=== PATIENT | female | born 1940 | race Caucasian/White ===

== ENCOUNTER 2019-04-16 07:44 | Outpatient (RCR) | payer MEDICARE, BC, SELFPAY | END 2019-04-16 23:59 | disposition home or self-care (01) | LOC: ANHAUDIO 07:44 | PROVIDERS: PCP Internal Medicine; Visit Provider Internal Medicine | DX: Z46.1 Encounter for fitting and adjustment of hearing aid (principal) | CPT/HCPCS: 99199 ==

== ENCOUNTER 2019-12-21 08:16 | Outpatient (RCR) | payer SELFPAY | END 2019-12-21 23:59 | disposition home or self-care (01) | LOC: ANHAUDIO 08:16 | PROVIDERS: PCP Internal Medicine; Visit Provider Internal Medicine | DX: Z46.1 Encounter for fitting and adjustment of hearing aid (principal) | CPT/HCPCS: 92593 ==

== ENCOUNTER 2025-03-06 09:36 | Outpatient (CLI) | payer MEDICARE, BC, SELFPAY ==
--- OUTSIDE RECORDS SUMMARY | 2025-03-06 10:12 | XMS_ITS | Clinical Summary ---
Author Organization [facility] Address [address] [place] [address] Phone Care Team Providers Care Pruner Name Role Phone Thee Archuleta MD Primary Care Provider [phone] Allergies Active Allergy Reactions Criticality Noted Date Comments Levofloxacin Other (See Comments) Low 08/14/2020 Reaction: joint, muscle aches., , Prochlorperazine Unknown 08/14/2020 Tetanus Vaccines And Toxoid Swelling Medium 02/07/2015 Reaction: swelling, , , Medications amLODIPine (NORVASC) 10 mg tablet Take 10 mg by mouth daily. Active meloxicam (MOBIC) 15 mg tablet Take 15 mg by mouth daily. Active hydrALAZINE (APRESOLINE) 50 mg tablet Take 50 mg by mouth 2 times daily. Active metoprolol succinate (TOPROL XL) 25 mg Extended Release 24 hour tablet Take 50 mg by mouth 2 times daily. Active omeprazole (PriLOSEC) 20 mg Capsule, Delayed Release(E.C.) Take 40 mg by mouth daily. Active gabapentin (NEURONTIN) 100 mg capsule Take 100 mg by mouth 3 times daily. Active hyoscyamine 0.375 mg Extended Release 12 hour tablet Take 0.375 mg by mouth every 12 hours as needed for Discomfort. Active chlorhexidine gluconate 0.12 % Mouthwash 15 mL by Mouth/Throat route 2 times daily. Active OTHER cyanocobalam inj 1000 mg Every month Active naloxone (NARCAN) 4 mg/spray Martha, Non-Aerosol EMERGENCY USE ONLY: Administer 1 spray in one nostril one time. May repeat in alternating nostrils every 2-3 min until responsive or EMS arrives. 2 Each 3 01/03/2020 5:00 PM CDT 0 Active azelastine (ASTEPRO) 0.15 % (205.5 mcg) nasal spray Administer 1 Martha in each nostril 1 time daily as needed. Active ciprofloxacin-d exAMETHasone (CIPRODEX) 0.3-0.1 % Drops, Suspension Administer 3 Drops in both ears 2 times daily as needed. Active blood sugar diagnostic Strip USE TO TEST BLOOD GLUCOSE EVERY DAY 9 Active calcium carbonate + vitamin D (CALTRATE+D) 600 mg(1,500mg) -400 unit Tablet Take 1 Tablet by mouth daily. Active cyanocobalamin (VITAMIN B-12) 1,000 mcg/mL Solution GIVE 1 ML INJECTION SQ ONCE A MONTH 0 Active cyclobenzaprine (FLEXERIL) 10 mg tablet Take 10 mg by mouth. Active lancets Test blood sugars daily 9 Active vitamin E 400 unit capsule Take 400 Units by mouth daily. Active quinapriL (ACCUPRIL) 20 mg tablet Take 20 mg by mouth daily. 0 Active DULoxetine (CYMBALTA) 60 mg Capsule, Delayed Release(E.C.) Take 60 mg by mouth daily. 2 Active pravastatin (PRAVACHOL) 10 mg tablet Take 10 mg by mouth daily at bedtime. 2 Active doxycycline hyclate (VIBRAMYCIN) 100 mg tablet Take 1 Tablet (100 mg) by mouth 2 times daily. 28 Tablet 2 Active tobramycin-dexA METHasone (TOBRADEX) 0.3-0.1 % suspension Use 3 drops in Left Ear BID for 1 week 5 mL 2 Active NYSTATIN-TRIAMC INOLONE TOPICAL Apply to affected area 1 time daily as needed. Active ergocalciferol, vitamin D2, (VITAMIN D ORAL) Take 5,000 Units by mouth daily. Active ferrous sulfate 325 mg (65 mg iron) tablet Take 325 mg by mouth daily. Active hypromellose (SYSTANE GEL OP) by Ophthalmic route 1 time daily as needed. Active cycloSPORINE (RESTASIS) 0.05 % emulsion Administer 1 Drop in both eyes 2 times daily. Active aspirin (ECOTRIN EC) 81 mg Tablet, Delayed Release (E.C.) Take 81 mg by mouth daily. Active pantoprazole (PROTONIX) 40 mg Tablet, Delayed Release (E.C.) 2 Active fluconazole (DIFLUCAN) 100 mg tablet Take 100 mg by mouth daily. 2 Active Active Problems No known active problems Social History Tobacco Use Types Packs/Day Years Used Date Smoking Tobacco: Former Cigarettes 0.3 2 1 838 - 8747 Smokeless Tobacco: Never Tobacco Cessation:Counseling Given: Not Answered Alcohol Use Standard Drinks/Week Comments Not Currently 0 (1 standard drink = 0.6 oz pur e alcohol) rarely Comments No Sex and Gender Information Value Date Recorded Sex Assigned at Not on file Legal Sex Female 8:44 AM CDT Gender Identity Not on file Sexual Orientation Not on file Last Filed Vital Signs Vital Sign Reading Time Taken Comments Blood Pressure 128/58 11/08/2022 2:48 PM CDT Pulse 82 05/04/2022 8:21 PM DANCE MASTER Temperature 36.1 C (96.9 F) 05/04/2022 8:21 PM DANCE MASTER Respiratory Rate 16 05/04/2022 7:28 PM DANCE MASTER Oxygen Saturation 96% 05/04/2022 8:21 PM DANCE MASTER Inhaled Oxygen Concentration - - Weight 76.2 kg (167 lb 14.4 oz) 022 11:27 AM DANCE MASTER Height 154.9 cm (5' 1) 05/04/2022 11:2 7 AM DANCE MASTER Body Mass Index 31.72 05/04/2022 11:27 AM DANCE MASTER Plan of Treatment Health Maintenance Due Date Last Done Comments DIABETES ANNUAL RETINAL EXAM 1959 DIABETES MICROALBUMIN ANNUAL SCREEN 1959 LDL CHOLESTEROL ANNUAL 1959 DTAP/TDAP/TD VACCINES (1 - Tdap) 1960 OSTEOPOROSIS SCREENING 2006 ZOSTER VACCINE (2 of 3) 08/01/2008 06/06/2008 RSV VACCINE (60+ or ) (1 - 1-dose 75+ series) 2016 DIABETES HBA1C Q 6 MONTHS 09/20/20232022, 03/08/2022, 08/18/2021, Additional history exists DIABETES ANNUAL FOOT EXAM 03/21/2024 03/21/2023 INFLUENZA VACCINE (#1) 2025 , 03/18/2022, 05/13/2021, Additional history exists COLORECTAL SCREENING Discontinued 06/27/2013 Colorectal Cancer Screening Discontinued PNEUMOCOCCAL VACCINE 50+ YEARS Completed 1 , 05/06/2014, 07/12/2010, Additional history exists FIT-DNA Q 3 years Discontinued FIT/FOBT Q 1 year Discontinued Flex Sig/CT Colonography Q 5 years Discontinued Medical Devices Implanted Type Area Deskidding Machine Operator Device Identifier Shelf Expiration Date Model / Serial / Lot Hemostatic Surgifoam [id number] 1973 - [id number] Implanted:Qty: 1 on 01/03/2020 by Armond Michael MD at [facility] Hemostatic Left: Ear [employer] 08/13/20231973 / / [id number] Hemostatic Surgifoam [id number] 1973 - [id number] Implanted:Qty: 1 on 05/04/2022 by Armond Michael MD at [facility] Hemostatic Right: Ear [employer] 11/04/20251973 / / [id number] Knee Replacements Insurance MEDICARE PART A AND B [facility] [employer] Advance Directives For more information, please contact: [phone] * Full Code (Latest Code Status on File) Date Activated Date Inactivated Comments 01/03/2020 7:13 AM 01/03/2020 8:05 PM * Full Code Date Activated Date Inactivated Comments 01/03/2020 5:46 AM 01/03/2020 7:13 AM Care Teams Pruner Relationship Specialty Start Date End Date Thee Archuleta MD PCP - General Family Practice 12/29/19
--- OUTSIDE RECORDS SUMMARY | 2025-03-06 10:12 | XMS_ITS | Encounter Summary ---
Author Organization [facility] Address [address] [place] [address] Care Team Providers Care Electrical Engineering Drafting Officer Name Role Phone Thee Archuleta MD Primary Care Provider [phone] Encounter Details Date Type Department Care Team (Late st Contact Info) Description 03/02/2022 Chart Note [facility] [address] [place] [id number] Kenn Obrien LPN Social History Tobacco Use Types Packs/Day Years Used Date Smoking Tobacco: Former Cigarettes 0.3 2 1 958 - 9891 Smokeless Tobacco: Never Alcohol Use Standard Drinks/Week Comments Yes 0 (1 standard drink = 0.6 oz pur e alcohol) rarely Comments No Sex and Gender Information Value Date Recorded Sex Assigned at Not on file Legal Sex Female 8:44 AM CDT Gender Identity Not on file Sexual Orientation Not on file COVID-19 Exposure Response Date Recorded In the last 10 days, have yo u been in contact with someone who was confirmed or suspected to have Coronavirus/COVID-19? No / Unsure 03/01/2022 12:55 PM CDT documented as of this encounter Plan of Treatment Not on file documented as of this encounter Visit Diagnoses Diagnosis Chronic mastoiditis of right side- Primary Chronic mastoiditis documented in this encounter Care Teams Electrical Engineering Drafting Officer Relationship Specialty Start Date End Date Thee Archuleta MD PCP - General Family Practice 12/29/19 documented as of this encounter
--- OUTSIDE RECORDS SUMMARY | 2025-03-06 10:12 | XMS_ITS | Encounter Summary ---
Author Organization [facility] Healthcare Address [address] [place] [address] Care Team Providers Care Geriatric Aide Name Role Phone Cary Downey RN Unavailable UnavailStephanie Patterson RN Unavailable Unavailab Thee Ford MD Primary Care Provider [phone] Ed Mooney PT Unavailable Unavailable Tr Zhang MD Unavailable [phone] Margarita Sim RN Unavailable [phone] Gloria Woods MA Unavailable [phone] Encounter Details Date Type Department Care Team (Late st Contact Info) Description 03/16/2021 Telephone [facility] [address] [place] [address] Shannon Lemon, RT Social History Tobacco Use Types Packs/Day Years Used Date Smoking Tobacco: Former Cigarettes Q uit: 1963 Smokeless Tobacco: Never Alcohol Use Standard Drinks/Week Comments Never 0 (1 standard drink = 0.6 oz pur e alcohol) AUDIT-C Answer Date Recorded Q1: How often do you have a drink containing alc ohol? Never 03/29/2020 Average Number of Drinks Not on file 020 Frequency of Binge Drinking Not on file 03/07 PHQ-2 Answer Date Recorded PHQ-2 Total Score (If total score is 3 or more points, staff should administer the PHQ-9) 0 03/06/2021 Comments No Sex and Gender Information Value Date Recorded Sex Assigned at Not on file Legal Sex Female 11:53 PM GARBAGE COLLECTOR Gender Identity Not on file Sexual Orientation Not on file documented as of this encounter Plan of Treatment Not on file documented as of this encounter Goals Goal Patient Goal Type Associated Problems Recent Progress Patient-Stated? Author BH-Pain Behavioral Health On track( 022 1:43 PM GARBAGE COLLECTOR) No Cary Downey, RN Note: Pt will describe how unrelieved pain will be managed. documented as of this encounter Visit Diagnoses Not on filedocumented in this encounter Additional Health Concerns Infection Onset Date Last Indicated Resolved Time COVID: Suspected 06/01/2022 06/01/2022 06/01/2022 9:48 PM GARBAGE COLLECTOR COVID: Suspected 04/12/2023 04/12/2023 04/12/2023 4:57 PM GARBAGE COLLECTOR COVID19 04/12/2023 04/12/2023 04/22/2023 3:05 AM GARBAGE COLLECTOR COVID: Recovered Comment:Added based on recent COVID infection. 04/22/2023 05/16/2023 07/21/2023 3:[address] documented as of this encounter Care Teams Geriatric Aide Relationship Specialty Start Date End Date Thee Archuleta MD [address] [place] [address] PCP - General Family Medicine 01/25/18 Cary Downey, RN Registered Nurse 05/18/17 Stephanie Barker, BEVERLEY Registered Nurse Pain Management 11/08/17 Ed Mooney, PT Physical Therapist Physical Therapy 11/25/21 Tr Zhang MD Consulting Physician Gastroenterology 05/19/22 Margarita Sim, BEVERLEY [address] [place] [address] [address] [place] [id number] Tire Fabricator 05/20/22 06/27/22 Gloria Woods MA [address] [place] [address] [address] [place], [place] [id number] [employer]CO Care Wedger 03/19/24 03/20/24 documented as of this encounter
--- OUTSIDE RECORDS SUMMARY | 2025-03-06 10:12 | XMS_ITS | Encounter Summary ---
Author Organization [facility] Healthcare Address [address] [place] [address] Care Team Providers Care Ship Construction Teacher Name Role Phone Cary Downey RN Unavailable UnavailStephanie Patterson RN Unavailable Unavailab Thee Ford MD Primary Care Provider [phone] Ed Mooney PT Unavailable Unavailable Tr Zhang MD Unavailable [phone] Reason for Referral * Consultation (Routine) - Closed Specialty Diagnoses / Procedures Referred By Contac t Referred To Contact Audiology Diagnoses Hearing loss, unspecified hearing loss type, unspecified laterality Thee Archuleta MD [address] [place] [address] Phone: tel: fax: External Order Referral ID Status Reason Start Date Expiration Date V isits Requested Visits Authorized [id number] Closed Specialty Services Required 03/06/2025 04/05/2026 1 1 Question Answer Please select the performing region: External Order [171] # of visits: 1 [facility] - Audiology (Ph) [phone] Encounter Details Date Type Department Care Team (Late st Contact Info) Description 03/06/2025 Telephone [facility] [address] [place] [address] Thee Archuleta MD [address] [facility] [place] [address] Social History Tobacco Use Types Packs/Day Years Used Date Smoking Tobacco: Former Cigarettes Q uit: 1963 Smokeless Tobacco: Never Alcohol Use Standard Drinks/Week Comments Never 0 (1 standard drink = 0.6 oz pur e alcohol) OASIS D0700: Social Isolation Answer Da te Recorded Frequency of experiencing loneliness or isolatio n Never 05/08/2024 OASIS A1250: Transportation Answer Date Recorded Lack of Transportation (Medical) No 05/08/2024 Lack of Transportation (Non-Medical) No 05/08/2024 Patient Unable or Declines to Respond No 05/08/2024 OASIS B1300: Health Literacy Answer Juancarlos e Recorded Frequency of needing help to read materials from doctor or pharmacy Never 05/08/2024 Humiliation, Afraid, Rape, and Kick questionnair e Answer Date Recorded Within the last year, have y ou been afraid of your partner or ex-partner? No 05/28/2022 Within the last year, have y ou been humiliated or emotionally abused in other ways by your partner or ex-partner? No Within the last year, have y ou been kicked, hit, slapped, or otherwise physically hurt by your partner or ex-partner? No 05/28/2022 Within the last year, have y ou been raped or forced to have any kind of sexual activity by your partner or ex-partner? No 05/28/2022 Social Connection and Isolation Panel Answer Date Recorded In a typical week, how many times do you talk on the phone with family, friends, or neighbors? Three times a week 06/02/2022 How often do you get togethe r with friends or relatives? Twice a week 06/02/2022 How often do you attend [facility] or restorationist services? More than 4 times per year 06/02/2022 Do you belong to any clubs o r organizations such as synagogue groups, unions, fraternal or athletic groups, or school groups? Yes 06/02/2022 How often do you attend meet ings of the clubs or organizations you belong to? Never 06/02/2022 Are you , , di vorced, , never , or living with a partner? 06/02/2022 AUDIT-C Answer Date Recorded Q1: How often do you have a drink containing alcohol? Never 04/24/2024 Q2: How many drinks containi ng alcohol do you have on a typical day when you are drinking? Patient does not drink Q3: How often do you have si x or more drinks on one occasion? Never 04/24/2024 Overall Financial Resource Strain (CARDIA) Answe r Date Recorded How hard is it for you to pa y for the very basics like food, housing, medical care, and heating? Not very hard 06/02/2022 PHQ-2 Answer Date Recorded PHQ-2 Total Score (If total score is 3 or more points, staff should administer the PHQ-9) 1 02/20/2025 [facility] - Occupational Stress Questionnaire Answer Date Recorded Do you feel stress - tense, restless, nervous, or anxious, or unable to sleep at night because your mind is troubled all the time - these days? Not at all 05/28/2022 Exercise Vital Sign Answer Date Recorde d On average, how many days pe r week do you engage in moderate to strenuous exercise (like a brisk walk)? 3 days 05/28/2022 On average, how many minutes do you engage in exercise at this level? 60 min 05/28/2022 Hunger Vital Sign Answer Date Recorded Within the past 12 months, y ou worried that your food would run out before you got the money to buy more. Never true 06/02/20 22 Within the past 12 months, t he food you bought just didn't last and you didn't have money to get more. Never true 06/02/2022 PRAPARE - Transportation Answer Date Re corded In the past 12 months, has l ack of transportation kept you from medical appointments or from getting medications? Yes 05/07 In the past 12 months, has l ack of transportation kept you from meetings, work, or from getting things needed for daily living? Yes 06/02/2022 Housing Stability Vital Sign Answer Juancarlos e Recorded In the last 12 months, was t here a time when you were not able to pay the mortgage or rent on time? No 06/02/2022 In the last 12 months, how many places have you lived? 1 06/02/2022 In the last 12 months, was t here a time when you did not have a steady place to sleep or slept in a fdc (including now)? No 06/02/2022 PHQ-9 Answer Date Recorded PHQ-9 Total Score 1 02/20/2025 Personal Safety Answer Date Recorded Have you ever been in or are you currently in a harmful physical or emotional relationship or is someone making you feel afraid or unsafe? Denies 04/24/2024 Comments No Sex and Gender Information Value Date Recorded Sex Assigned at Not on file Legal Sex Female 11:53 PM BREAKER TENDER Gender Identity Not on file Sexual Orientation Not on file documented as of this encounter Miscellaneous Notes * Telephone Encounter - Breana Cordova - 03/06/2025 9:36 AM CDT Lili from [facility] needing referral. Appt: today 03/06/25 Dx. Unspecified hearing loss/hearing exam documented in this encounter Plan of Treatment Scheduled Referrals Name Type Priority Associated Diagnoses Orde r Schedule Ambulatory referral to Audiology (ADULT) Outpatient Referral Routine Hearing loss, unspecified hearing loss type, unspecified laterality Expected: 05/06/2025 (Approximate), Expires: 03/06/2026 documented as of this encounter Goals Goal Patient Goal Type Associated Problems Recent Progress Patient-Stated? Author BH-Pain Behavioral Health On track( 022 1:43 PM BREAKER TENDER) No Cary Downey, RN Note: Pt will describe how unrelieved pain will be managed. documented as of this encounter Visit Diagnoses Diagnosis Hearing loss, unspecified hearing loss type, unspecified laterality- Primary documented in this encounter Care Teams Ship Construction Teacher Relationship Specialty Start Date End Date Thee Archuleta MD [address] [place] [address] PCP - General Family Medicine 01/25/18 Cary Downey, RN Registered Nurse 05/18/17 Stephanie Barker, RN Registered Nurse Pain Management 11/08/17 Ed Mooney, DAVID Physical Therapist Physical Therapy 11/25/21 Tr Zhang MD Consulting Physician Gastroenterology 05/19/22 documented as of this encounter
--- OUTSIDE RECORDS SUMMARY | 2025-03-06 10:12 | XMS_ITS | Clinical Summary ---
Author Organization [facility] Address [address] [facility], [address] [address] Phone Care Team Providers Care K 12 Principal Name Role Phone Medardo Botoh MD Unavailable Farhat Colon MD Unavailable Minerva Chambers APRN, EXPERIMENTAL ROCKETSLED MECHANIC Unavailable [phone] Thee Archuleta MD Primary Care Provider [phone] Armond Michael MD Unavailable [phone] Allergies Active Allergy Reactions Criticality Noted Date Comments Tetanus Toxoid Swelling Medium 02/07/2015 Medications quinapril (ACCUPRIL) 40 MG TabletIndicati ons:pt states she is taking 20mg daily Take 40 mg by mouth daily. 5 Active metoprolol tartrate (LOPRESSOR) 50 MG Tablet Take 50 mg by mouth 2 times daily. 5 Active amLODIPine (NORVASC) 5 MG Tablet Take 10 mg by mouth daily. 5 Active hydrALAZINE 50 MG Tablet Take 50 mg by mouth Twice daily. 5 Active hyoscyamine (LEVBID) 0.375 MG TABLET SR 12 HR Take 2 Caps by mouth every 12 hours as needed (spasms). 5 Active pravastatin (PRAVACHOL) 10 MG Tablet Take 10 mg by mouth At bedtime. 5 Active Ferrous Sulfate 325 (65 FE) MG Tablet Delayed Response Take 325 mg by mouth At bedtime. 5 Active Cholecalcifero l (VITAMIN D3) 88873 UNIT CapsuleIndicat ions:pt takes 5000iu daily Take 1 Cap by mouth At bedtime. 5 Active vitamin E (TOCOPHEROL) 400 UNIT Capsule Take 400 Units by mouth At bedtime. 5 Active calcium carbonate 600 MG Tablet Take 600 mg by mouth At bedtime. 5 Active CycloSPORINE (RESTASIS OP) Place 1 Drop in both eyes Twice daily. 5 Active cyanocobalamin (VITAMIN B-12) 1000 MCG/ML Solution 1,000 mcg by Subcutaneous route every 30 days. 5 Active Ciprofloxacin- Dexamethasone (CIPRODEX OT) Place 1 Drop in affected eye(s) 2 times daily. Active AZELASTINE HCL NA 1 [place] by Nasal route 2 times daily. Active HYDROcodone-ac etaminophen (NORCO) 5-325 MG Tablet Take 1-2 Tabs by mouth every 4 hours as needed for Mild or more severe pain. Active cyclobenzaprin e (FLEXERIL) 10 MG Tablet Take 10 mg by mouth 3 times daily as needed for Muscle spasms. Active other neomycin and polymyxin B sulfates and hydrocortisone otic suspension, INTERMEDIATE 1 drop in R ear on even days, 1 drop in L ear on odd days Active travoprost, PAT Free, (TRAVATAN Z) 0.004 % Solution Place 1 Drop in affected eye(s) nightly. Active tiZANidine (ZANAFLEX) 4 MG Tablet Take 4 mg by mouth every 6 hours as needed for Muscle spasms. 9 Active diazePAM (VALIUM) 5 MG Tablet Take 5 mg by mouth every 8 hours as needed for Muscle spasms. Active Active Problems Problem Noted Date Diagnosed Date History of head, eyes, ears, nose, and throat (HEENT) surgery 09/06/2017 Overview (09/06/2017): Excision of the hard palate cancer 10/16/2004 at [facility]. Obesity, Class II, BMI 35-39.9 09/06/2017 Chronic groin pain, right 09/06/2017 Overview (09/06/2017): Ever since cardiac procedure in 2009 which required to operative procedures to repair the right femoral artery. Xerostomia due to radiotherapy 09/06/2017 Adverse effect of radiation 09/06/2017 Overview (09/06/2017): Xerostomia secondary to hard palate radiotherapy. Use of cane as ambulatory aid 09/06/2017 Overview (09/06/2017): Secondary to chronic right groin pain. Impaired gait and mobility 09/06/2017 Overview (09/06/2017): Secondary to chronic right groin pain. History of therapeutic radiation 08/24/2016 Overview (08/24/2016): Completed adjuvant post-operative radiotherapy on 01/21/05. 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 Of note, she required dental extractions in July and August 2013 which were preceded by HBO treatments. Since then she has had a small area of exposed right maxilla. Enlarged lymph node in neck Bilateral sensorineural hearing loss Hearing aid worn Encounters Date Type Department Care Team Description 01/09/2025 1:00 PM CDT Office Visit [facility] [address] [place] [address] Medardo Booth MD Encounter for follow-up examination after completed treatment for malignant neoplasm (Primary Dx); History of cancer of hard palate; History of therapeutic radiation; History of head, eyes, ears, nose, and throat (HEENT) surgery; Bilateral sensorineural hearing loss; Hearing aid worn; Xerostomia due to radiotherapy; Adverse effect of radiation, sequela; Impaired gait and mobility; Use of cane as ambulatory aid; Edentulous Discharge Disposition: Discharged to home or Selfcare 01/09/2025 Travel from Last 3 Months Family History Medical History Relation Name Comments Alcohol Abuse Brother Relation Name Status Comments Brother Father Mother Social History Tobacco Use Types Packs/Day Years Used Date Smoking Tobacco: Former Cigarettes Q uit: 06/10/1965 Smokeless Tobacco: Never Tobacco Cessation:Counseling Given: Not Answered Alcohol Use Standard Drinks/Week Comments Not Currently 0 (1 standard drink = 0.6 oz pur e alcohol) Comments No Sex and Gender Information Value Date Recorded Sex Assigned at Not on file Legal Sex Female 11:37 PM CDT Gender Identity Not on file Sexual Orientation Not on file Last Filed Vital Signs Vital Sign Reading Time Taken Comments Blood Pressure 173/92 01/09/2025 1:17 PM CDT asymptomatic Pulse 65 01/09/2025 1:17 PM CDT Temperature 36.5 C (97.7 F) 01/09/2025 1:17 PM CDT Respiratory Rate 16 01/09/2025 1:17 PM CDT Oxygen Saturation 99% 01/09/2025 1:1 7 PM CDT Inhaled Oxygen Concentration - - Weight 75.8 kg (167 lb 1.6 oz) 01/10/20 25 1:17 PM CDT Height 154.9 cm (5' 1) 01/12/2024 1:15 PM CDT Body Mass Index 31.57 01/12/2024 1:15 PM CDT Plan of Treatment Upcoming Encounters Date Type Department Care Team (Late st Contact Info) Description 01/09/2026 1:00 PM CDT [facility] [address] [place] [address] Medardo Booth MD [address] [place] [address] Discharge Disposition: Discharged to home or Selfcare Health Maintenance Due Date Last Done Comments DEXA Bone Density 1940 Hepatitis C Virus (HCV) Screening 1940 TdaP Immunization 1940 Medicare Initial AWV G0438 02/04/2007 Zoster Immunization (2 of 3) 08/01/2008 06/06/2008 Respiratory Syncytial Virus (RSV) Immunization (Adult) (1 - 1-dose 75+ series) 2016 Influenza Immunization (#1) 02/04/202503/07, 03/21/2023, 03/18/2022, Additional history exists SARS-COV-2 Immunization ( season) 2025 05/26/2021, 08/15/2020, 07/18/2020 Pneumococcal Immunization (50+ years) Completed 04/02/2015, 05/06/2014, 07/12/2010, Additional history exists Pneumococcal Immunization Combined Discontinued 04/02/2015, 05/06/2014, 07/12/2010, Additional history exists Hepatitis B Immunization Aged Out No longer eligible based on patient's age to complete this topic Human Papillomavirus (HPV) Immunization Aged Out No longer eligible based on patient's age to complete this topic Meningococcal Immunization (ACWY) Aged Out No longer eligible based on patient's age to complete this topic Rotavirus Immunization Aged Out No lo nger eligible based on patient's age to complete this topic Insurance MEDICARE [facility] MEDICARE C [employer] BETTER [employer] Advance Directives * Full Code (Latest Code Status on File) Date Activated Date Inactivated Comments 02/14/2015 9:19 AM Care Teams K 12 Principal Relationship Specialty Start Date End Date Thee Archuleta MD [address] [place] [address] PCP - General Internal Medicine 04/10/19 Medardo Booth MD Consulting Physician Radiation Oncology 06/10/15 Farhat Colon MD Consulting Physician Obstetrics & Gynecology 06/10/15 Minerva Chambers, [employer] I ASSEMBLER, EXPERIMENTAL ROCKETSLED MECHANIC [address] [place] [address] DR LINARES [address] [place] [id number] Nurse Practitioner Advanced Practice Nurse 09/06/17 Armond Michael MD [address] [facility] [address] [place] [id number] Consulting Physician Otolaryngology 12/03/21
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
== END 2025-03-06 09:37 | disposition home or self-care (01) ==
LOC: ANHBWCAUD 09:37
PROVIDERS: PCP Internal Medicine; Visit Provider Family Medicine
DX: H91.90 Unspecified hearing loss, unspecified ear (principal)
CPT/HCPCS: 92567